=== PATIENT | male | born 1995 ===

== ENCOUNTER 2021-10-13 14:44 | Emergency (ER) | payer SELFPAY ==
[2021-10-13] VITALS (28 sets, daily range): BP systolic 108–148; BP diastolic 59–85; PULSE 57–120; RESP 0–31; TEMP 36.5; O2SAT 91–99
--- NOTE | 2021-10-13 14:48 | W.ED.GENAD ---
Discharge Plan Disposition Patient Disposition: HOME Condition: Improving Discharge Details Clinical Impression: Accidental fentanyl overdose Primary Care Provider: Unknown,Unknown ED Provider: Amanda Phoenix Home Meds and New Rx's Prescriptions: No Action No Known Home Meds Discharge Instructions Instructions: Narcotic Safety (ED) Additional Instructions: Drink plenty of fluids and get plenty of rest. Please use Narcan as directed for any future potential overdose. Follow-up with your primary care doctor in 1 week. Return to the emergency department with any worsening or new concerning symptoms. Discharge Data Discharge Date/Time-TO BE ENTERED AT DEPARTURE: 10/13/21 17:48 Discharge Physician: Amanda Phoenix Medical Decision Making 1520 -- 26-year-old male with a history of opiate use previously in remission for the past 16 months currently residing at [facility] presents for fentanyl overdose with hypoxia bagged and given Narcan in the field with response and improvement in saturations to 97%. Heart rate 110s on arrival. Oxygen saturation 95% on room air. No evidence of trauma on exam. Lungs clear bilaterally. Abdomen is soft and nontender. No midline spinal tenderness. Moving all extremities without deformity. Patient is refusing IV, lab draw. He admits to mild headache and nausea. We will give a dose of oral Tylenol and Zofran. Will obtain EKG and continue to monitor for the next 2 hours for prolonged effects of fentanyl status post Narcan. 1745 --patient observed for almost 3 hours and no return of symptoms. Patient feels comfortable going home. He states there is Narcan at [facility]. Advised to follow up with the primary care doctor for re-evaluation. Usual and customary return precautions given prior to discharge. Medical Records Medical records reviewed: Yes I reviewed the patient's medical records. ECG Data Attestation: I personally reviewed and interpreted this ECG (s) as follows: Interpretation: Rate of 94, sinus, normal axis, no STEMI. HPI General Date/Time Provider Initiated Documentation: 10/13/21 14:48. Limitations to Documentation: no limitations. Information obtained by: patient. 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 Patient states he was at work at the [employer] when he went to the bathroom and next thing he remembers is ambulance staff standing over him. EMS reports that oxygen saturation was 40% on room air patient was bagged and given 2 mg of Narcan and saturations increased to high 90s and patient was awake and alert. Patient states he smoked 2 bags of fentanyl prior to this. He states his last use of opiates was 16 months ago. He is stable cigarettes occasionally but denies any other alcohol or drug use. Related Data Home Medications Medication Instructions Recorded Confirmed Unknown [No Known Home Meds] 10/13/21 10/13/21 Allergies Allergy/AdvReac Type Severity Reaction Status Date / Time No Known Allergies Allergy Unverified 10/13/21 15:28 General Stated Complaint: OD/Poison JERRY: 3 Review of Systems All systems reviewed & are unremarkable except as noted in HPI and below Constitutional Constitutional: Denies chills, Denies excessive sweating, Denies fatigue, Denies fever(s), Reports headache(s), Denies weakness and Denies weight loss Eyes Eyes: Reports system reviewed and no additional complaints, except as documented and Denies blurry vision ENT Ears, Nose, Mouth, and Throat: Denies vertigo, Denies dizziness, Denies otalgia, Reports headache(s), Denies nasal congestion, Denies sore throat and Denies throat swelling Cardiovascular Cardiovascular: Denies chest pain, Denies syncope, Denies rapid heart rate and Denies dyspnea Respiratory Respiratory: Denies chest congestion, Denies cough, Denies pain on inspiration and Denies dyspnea Gastrointestinal Gastrointestinal: Denies abdominal pain, Denies diarrhea, Reports nausea and Denies vomiting Genitourinary Genitourinary: Denies hematuria, Denies dysuria and Denies flank pain Musculoskeletal Musculoskeletal: Denies back pain and Denies joint swelling Integumentary/Breasts Skin/Breast: Denies lesions and Denies rash Neurologic Neurologic: Denies behavioral changes, Denies confusion, Denies vertigo, Denies dizziness, Denies syncope, Reports headache(s), Denies localized weakness and Denies weakness Psychiatric Psychiatric: Denies behavioral changes, Denies confusion and Denies depression Endocrine Endocrine: Denies excessive sweating and Denies fatigue Hematologic/Lymphatic Hematologic/Lymphatic: Denies easy bruising and Denies lymphadenopathy Allergic/Immunologic Allergic/Immunologic: Denies throat swelling PFSH All Active Problems (Updated 10/14/21 @ 09:55 by Amanda Phoenix DO) Accidental fentanyl overdose (Acute) Medical History (Updated 10/14/21 @ 09:55 by Amanda Phoenix DO) No significant past medical history Surgical History (Updated 10/14/21 @ 09:55 by Amanda Phoenix DO) No significant past surgical history Social History Smoking/Tobacco Use Status: Current-Occasional Tobacco Type: cigarettes Smoking risk assessment performed?: Yes Alcohol Intake: former Drug use: Occasionally Substance use type: opiates Do you feel safe at home: Yes Do you feel safe in your relationship?: Yes Exam Const General: cooperative and healthy appearing Orientation: alert, awake and oriented x3 HENMT Head: normal to inspection Ears: hearing grossly normal bilaterally, external ears normal and TM's normal bilaterally General nose exam: external nose normal Face and sinus: normal facial exam Mouth: oral mucosae normal Teeth and gingiva: dentition normal Throat: posterior oropharynx normal Eyes General: appearance normal, both eyes and all related structures Eyelids: eyelids normal Pupils: PERRL EOM: EOM intact bilaterally Neck Neck: normal visual inspection Lymphatic: no lymphadenopathy noted Chest Chest: normal inspection of the chest Resp Effort & Inspection: normal respiratory effort and able to speak in complete sentences Auscultation: clear to auscultation bilaterally Cardio Rate: regular rate Rhythm: regular rhythm GI Inspection: normal to inspection Palpation: soft, not firm, no guarding, no hepatosplenomegaly, no masses and nontender Auscultation: normal bowel sounds Back/Spine/Pelvis Back: no CVA tenderness Skin General skin exam: no rashes or lesions noted Neuro General: patient alert, patient awake, patient oriented x3 and moves all extremities Cognition: normal cognition Speech: speech normal Gait: normal gait Motor: muscle tone normal throughout Sensory Exam: no sensory deficits noted Extrem General: normal to inspection, full ROM and capillary refill normal Psych Appearance: grossly normal Mental Status: mental status grossly normal Speech and Movement: speech and movement normal Affect: normal affect Thought Process: normal
--- NOTE | 2021-10-13 15:30 | RT.EKG_ITS ---
APPROVED REPORT Exam: Resting ECG Reason for Exam: overdose Patient Location: E HR:94 bpm ECG Measurements Heart Rate 94 AXIS MS 149 P 42 QRSd 91 QRS 41 QT 361 T 35 QTc 453 Conclusion Sinus rhythm...normal P axis, V-rate 60- 99. Sinus. Normal axis. No STEMI. I have reviewed and interpreted ECG and agree with software generated interpretation.
[2021-10-13] MEDS: Acetaminophen 500 MG TAB 1000 MG PO (15:37)
[2021-10-13] MEDS: Ondansetron O.D.T. 4 MG TABEF PO (15:37)
== END 2021-10-13 17:48 | disposition home or self-care (01) ==
LOC: ER 18:55
PROVIDERS: Emergency Provider Physician Assistant
DX: T40.411A Poisoning by fentanyl or fentanyl analogs, accidental (unintentional), initial encounter (principal); R09.02 Hypoxemia; R51.9 Headache, unspecified; R11.0 Nausea; F17.210 Nicotine dependence, cigarettes, uncomplicated
CPT/HCPCS: 93005; 99283; 93010; 99284

== ENCOUNTER 2023-12-30 16:08 | Emergency (ER) | payer MEDICAID, SELFPAY ==
[2023-12-30 16:35] VITALS: BP 136/74; PULSE 132; RESP 14; TEMP 37.3; O2SAT 99
--- NOTE | 2023-12-30 17:46 | ED.GENADUL_ITS ---
Discharge Plan Disposition Patient Disposition: Home Condition: Stable Discharge Details Chief Complaint: Male Reproductive Problem Clinical Impression: Penile lesion Primary Care Provider: Unknown,Unknown ED Provider: Marcos Brown Home Meds and New Rx's Prescriptions: No Action No Known Home Meds Discharge Instructions Instructions: Sexually Transmitted Infections ED Additional Instructions: Please follow-up with urology team in the coming weeks. Follow-up with your primary care physician as well. Return to the emergency department for any worsening symptoms HPI General Date/Time Provider Initiated Documentation: 12/30/23 17:11 . HPI Narrative: 28-year-old male presents with penile lesion over the last year has a growth near his urethral meatus on both sides, has had intermittent light discharge in the past no penile discharge currently no testicular pain. New sexual partner with condom use. Related Data Home Medications ?Medication ?Instructions ?Recorded ?Confirmed Unknown [No Known Home Meds] 10/13/21 12/30/23 Allergies Allergy/AdvReac Type Severity Reaction Status Date / Time No Known Allergies Allergy Unverified 12/30/23 16:42 General Stated Complaint: Male Reproductive Problem JERRY: 4 Exam Narrative Exam Narrative: Normal external genitalia patient does have 2 small skin growths on either side of his urethral meatus, not indurated not erythematous nonvesicular nonpustular without penile discharge Normal oropharynx, does have mild irritation at sublingual salivary gland possible small salivary stone Course Vital Signs Vital signs: Vital Signs Temperature 37.3 C 12/30/23 16:35 Pulse 132 H 12/30/23 16:35 Respiratory Rate 14 12/30/23 16:35 Blood Pressure 136/74 12/30/23 16:35 Pulse Oximetry 99 12/30/23 16:35 Temperature 37.3 C 12/30/23 16:35 Temperature Source Oral 12/30/23 16:35 Pulse 132 H 12/30/23 16:35 Respiratory Rate 14 12/30/23 16:35 Blood Pressure 136/74 12/30/23 16:35 Blood Pressure Position Sitting 12/30/23 16:35 Pulse Oximetry 99 12/30/23 16:35 Oxygen Delivery Method Room Air 12/30/23 16:35 Oxygen Flow Rate 0 12/30/23 16:35 Pain Level 0 12/30/23 16:35 Medical Decision Making 28-year-old male presents with penile lesion over the last year, has had penile discharge in the past none currently no testicular pain afebrile nontoxic tachycardia likely related anxiety on arrival patient is hemodynamically stable in no respiratory distress, calm cooperative, 2 small skin close on either side of urethral meatus nonvesicular nonpustular nonpurulent, does not appear to be genital herpes, no penile discharge; consider skin tag versus localized hypertrophy from irritation or trauma versus genital warts. Will send gonorrhea chlamydia urinalysis patient be given referral to urology for close follow-up. Sublingual mild irritation to salivary gland possible small stone. Quality:SDOH Health Related Social Needs: No Data to Display PFSH All Active Problems (Updated 12/30/23 @ 17:52 by Marcos Brown MD) Penile lesion (Acute) Medical History (Updated 12/30/23 @ 17:52 by Marcos Brown MD) No significant past medical history Surgical History (Updated 10/14/21 @ 09:55 by Amanda Phoenix DO) No significant past surgical history Social History Smoking/Tobacco Use Status: Current-Occasional Tobacco Type: cigarettes Smoking risk assessment performed?: Yes Alcohol Intake: former Drug use: Occasionally Substance use type: opiates Do you feel safe at home: Yes Do you feel safe in your relationship?: Yes
[2024-01-01 11:44] LABS: Chlamydia Result Negative (Negative); GC Result Negative (Negative)
== END 2023-12-30 18:03 | disposition home or self-care (01) ==
LOC: ER 18:06
PROVIDERS: Emergency Provider Emergency Medicine
DX: N48.89 Other specified disorders of penis (principal); F17.210 Nicotine dependence, cigarettes, uncomplicated
CPT/HCPCS: 87491; 87591; 99283